=== PATIENT | female | born 1940 | race Caucasian/White ===

== ENCOUNTER 2018-10-26 18:57 | Emergency (ER) | payer MEDICARE, BC ==
[2018-10-26 19:33] VITALS: RESP 18; TEMP 97.1
[2018-10-26] MEDS ORDERED: APAP/HYDROCODONE 1 EACH TABLET PO ONE (19:37)
[2018-10-26] MEDS ORDERED: APAP/HYDROCODONE 1 EACH TABLET ONE (19:40)
[2018-10-26 20:30] VITALS: BP 136/82; PULSE 84; O2SAT 96
== END 2018-10-26 20:13 | disposition home or self-care (01) | DRG 605 ==
LOC: ED 18:57
DX: S40.012A Contusion of left shoulder, initial encounter (principal); W01.0XXA Fall on same level from slipping, tripping and stumbling without subsequent striking against object, initial encounter
CPT/HCPCS: 73030; 99283; A9270-GY

== ENCOUNTER 2018-11-05 12:26 | Outpatient (CLI) | payer MEDICARE, BC ==
[2018-10-26 20:30] VITALS: O2SAT 96
== END 2018-11-05 12:27 | disposition home or self-care (01) | DRG 561 ==
LOC: CONVCARE 12:26
PROVIDERS: ATTEND Orthopaedic Surgery
DX: S42.202D Unspecified fracture of upper end of left humerus, subsequent encounter for fracture with routine healing (principal)
CPT/HCPCS: 73020; 73060

== ENCOUNTER 2018-11-26 13:15 | Outpatient (CLI) | payer OTHER, MEDICARE, BC ==
[2018-10-26 20:30] VITALS: O2SAT 96
== END 2018-11-26 13:16 | disposition home or self-care (01) | DRG 561 ==
LOC: RAD 13:15
PROVIDERS: ATTEND Orthopaedic Surgery
DX: Z47.89 Encounter for other orthopedic aftercare (principal)
CPT/HCPCS: 73030

== ENCOUNTER 2018-12-24 11:46 | Outpatient (CLI) | payer OTHER, MEDICARE, BC ==
[2018-10-26 20:30] VITALS: O2SAT 96
== END 2018-12-24 11:47 | disposition home or self-care (01) | DRG 561 ==
LOC: CONVCARE 11:46
PROVIDERS: ATTEND Orthopaedic Surgery
DX: S42.202D Unspecified fracture of upper end of left humerus, subsequent encounter for fracture with routine healing (principal)
CPT/HCPCS: 73030

== ENCOUNTER 2019-02-04 08:50 | Outpatient (CLI) | payer MEDICARE, BC ==
[2018-10-26 20:30] VITALS: O2SAT 96
== END 2019-02-04 08:51 | disposition home or self-care (01) | DRG 561 ==
LOC: CONVCARE 08:50
PROVIDERS: ATTEND Orthopaedic Surgery
DX: S42.202D Unspecified fracture of upper end of left humerus, subsequent encounter for fracture with routine healing (principal)
CPT/HCPCS: 73030